=== PATIENT | male | born 1940 | race Caucasian/White ===

== ENCOUNTER → 2017-08-17 | Outpatient (CLI) | payer MEDICARE ==
--- NOTE | 2017-08-17 12:46 | REP ---
RIGHT FOOT, FOUR VIEWS: HISTORY: Contusion. There is no acute fracture or dislocation. There is narrowing of the first metatarsophalangeal joint space with associated osteophyte formation. An osteophyte is present at the base of the proximal phalange of the second digit. Osteophytes are present on the inferior and posterior calcaneus. IMPRESSION: Degenerative change as described above. Signed by Chris Mcdaniels MD 08/17/2017 12:48 P
== END ==
LOC: M WUC 10:30
PROVIDERS: ATTEND Physician Assistant
DX: S90.31XA Contusion of right foot, initial encounter (principal); W18.30XA Fall on same level, unspecified, initial encounter; Y92.009 Unspecified place in unspecified non-institutional (private) residence as the place of occurrence of the external cause

== ENCOUNTER 2017-12-02 12:05 | Day surgery (SDC) | payer MEDICARE ==
[2017-12-02] MEDS: NS 1,000 ML IV (13:13)
[2017-12-02] MEDS ORDERED: LIDOCAINE 2% INJ 100 MG/5 ML SDV (FOR ANES.) As Ordered (13:55)
[2017-12-02] MEDS ORDERED: PROPOFOL 200 MG/20 ML VIAL As Ordered ×3 (13:55→14:22)
== END 2017-12-02 14:59 | disposition home or self-care (01) ==
LOC: M OPP 12:05
DX: Z12.11 Encounter for screening for malignant neoplasm of colon (principal); K64.8 Other hemorrhoids; D12.6 Benign neoplasm of colon, unspecified; Z86.010 Personal history of colon polyps; R12 Heartburn; E11.9 Type 2 diabetes mellitus without complications; G47.30 Sleep apnea, unspecified; I10 Essential (primary) hypertension; M19.90 Unspecified osteoarthritis, unspecified site; K21.9 Gastro-esophageal reflux disease without esophagitis; R00.1 Bradycardia, unspecified; Z79.82 Long term (current) use of aspirin; Z79.84 Long term (current) use of oral hypoglycemic drugs; Z79.899 Other long term (current) drug therapy; Z88.8 Allergy status to other drugs, medicaments and biological substances; Z87.891 Personal history of nicotine dependence; Z86.79 Personal history of other diseases of the circulatory system; Z87.81 Personal history of (healed) traumatic fracture; Z86.69 Personal history of other diseases of the nervous system and sense organs; Z87.19 Personal history of other diseases of the digestive system; Z93.3 Colostomy status
CPT/HCPCS: 45385

== ENCOUNTER → 2018-02-14 | Outpatient (CLI) | payer MEDICARE | LOC: M RAD 09:30 | DX: Z12.2 Encounter for screening for malignant neoplasm of respiratory organs (principal); Z87.891 Personal history of nicotine dependence | CPT/HCPCS: G0297 ==

== ENCOUNTER 2018-04-12 19:20 | Emergency (ER) | payer MEDICARE ==
[2018-04-12] MEDS: NS 500 ML IV (20:46)
[2018-04-12 20:53] LABS: BASO % 0.3 % (0.0-1.0); EOS % 0.4 % (0.0-3.0); HEMATOCRIT 38.9 % (42.0-52.0); HEMOGLOBIN 13.3 g/dl (13.5-17.5); IMMATURE GRANULOCYTE % 0.4 % (0-3.0); LYMPH # 0.5 10^3/uL (1.5-4.5); LYMPH % 7.6 % (24.0-44.0); MEAN CORPUSCULAR HGB CONC 34.2 g/dl (32.0-36.5); MEAN CORPUSCULAR VOLUME 96.5 fl (80.0-96.0); MONO # 0.1 10^3/uL (0.0-0.8); NEUTROPHILS # 6.1 10^3/uL (1.8-7.7); NEUTROPHILS % 89.3 % (36.0-66.0); PLATELET COUNT, AUTOMATED 114 10^3/uL (150-450); RED BLOOD COUNT 4.03 10^6/uL (4.30-6.10); RED CELL DISTRIBUTION WIDTH 12.5 % (11.5-14.5); WHITE BLOOD COUNT 6.8 10^3/uL (4.0-10.0)
[2018-04-12 21:04] LABS: LACTIC ACID SEPSIS PROTOCOL 1.8 MMOL/L (0.4-2.0)
[2018-04-12 21:05] LABS: ALBUMIN 4.3 GM/DL (3.2-5.2); ALBUMIN/GLOBULIN RATIO 1.16 (1.00-1.93); ALKALINE PHOSPHATASE 67 U/L (45-117); ALT/SGPT 30 U/L (12-78); ANION GAP 8 MEQ/L (8-16); AST/SGOT 23 U/L (7-37); BILIRUBIN,DIRECT 0.2 MG/DL (0.0-0.2); BILIRUBIN,TOTAL 0.8 MG/DL (0.2-1.0); BLOOD UREA NITROGEN 28 MG/DL (7-18); CALCIUM LEVEL 9.2 MG/DL (8.8-10.2); CARBON DIOXIDE LEVEL 25 MEQ/L (21-32); CHLORIDE LEVEL 106 MEQ/L (98-107); CK-MB VALUE MASS 2.1 NG/ML (<3.6); CPK CREATINE PHOSPHOKINASE 264 U/L (39-308); GLOMERULAR FILTRATION RATE > 60.0 (>42); GLUCOSE, FASTING 150 MG/DL (70-100); INR 1.05; LIPASE 130 U/L (73-393); MB/CK RELATIVE INDEX 0.79 (< OR =4); POTASSIUM SERUM 4.6 MEQ/L (3.5-5.1); PROTHROMBIN TIME 13.8 SECONDS (12.4-14.5); SODIUM LEVEL 139 MEQ/L (136-145); TROPONIN I < 0.02 NG/ML (< 0.10)
[2018-04-12 21:06] LABS: PARTIAL THROMBOPLASTIN TIME 26.5 SECONDS (26.8-37.9)
[2018-04-12 21:07] LABS: KETONE, URINE AUTO RFX NEGATIVE (NEGATIVE); NITRITE, URINE AUTO RFX NEGATIVE (NEGATIVE); RBC, URINE AUTO RFX 6 /HPF (0-3); SPECIFIC GRAVITY UR AUTO RFX 1.017 (1.002-1.035); SQUAM EPITHELIAL CELL UR AURFX 0 /HPF (0-6)
[2018-04-12 21:08] LABS: LEUKOCYTE ESTERASE UR AUTO RFX 3+ (NEGATIVE); WBC, URINE AUTO RFX 109 /HPF (0-3)
[2018-04-12] MEDS ORDERED: ISOVUE-370 76% 100ML VIAL (Q9967) As Ordered (21:20)
[2018-04-12] MEDS: CIPROFLOXACIN 500 MG TAB PO (22:18)
== END 2018-04-12 22:20 | disposition home or self-care (01) ==
LOC: M ED 19:20
DX: N39.0 Urinary tract infection, site not specified (principal); I25.10 Atherosclerotic heart disease of native coronary artery without angina pectoris; I25.2 Old myocardial infarction; E11.9 Type 2 diabetes mellitus without complications; R56.9 Unspecified convulsions; N28.1 Cyst of kidney, acquired; K57.30 Diverticulosis of large intestine without perforation or abscess without bleeding; Z79.899 Other long term (current) drug therapy; Z88.8 Allergy status to other drugs, medicaments and biological substances
CPT/HCPCS: Q9967

== ENCOUNTER → 2018-09-16 | Outpatient (CLI) | payer MEDICARE ==
[~2018-09-16] MED LIST: ISOVUE-370 76% 100ML VIAL (Q9967) As Ordered
== END ==
LOC: M RAD 08:55
DX: J84.10 Pulmonary fibrosis, unspecified (principal)
CPT/HCPCS: Q9967

== ENCOUNTER → 2021-09-29 | Outpatient (REF) | payer MEDICARE ==
[~2021-09-29] MED LIST changes: +ASPI81TA86 PO; +CALTTAB6 PO; +CIPR-249 PO; +CRES10TA PO; +FLINCHW5 PO; +IRBE300T7 PO; -ISOVUE-370 76% 100ML VIAL (Q9967) As Ordered; +KEPP10002 PO; +NEUR300C PO; +PANT40TA29 PO; +SERT-141 PO; +VIMP150T PO; +VIMP200T PO; +VITA2000 PO; +VITA500T17 PO
== END ==
LOC: M LAB REF 15:32
PROVIDERS: ATTEND Family Medicine
DX: M70.22 Olecranon bursitis, left elbow (principal)

== ENCOUNTER 2023-07-15 07:37 | Day surgery (SDC) | payer MEDICARE ==
[~2023-07-15] VITALS: Ht 188 cm; Wt 109.0 kg
[~2023-07-15 07:37] MED LIST changes: +ASPI-161 PO; +CLOP75TA2 PO; +CYCLOPENTOLATE 1% OPHTH SOLN 2ML BTL OD SCH; +ENTR1TAB PO; +LACO200T PO; +LIDOCAINE 1% SDV 5ML VIAL As Ordered ONE; +LR 1,000 ML IV SCH; +METF10004 PO; +PHENYLEPHRINE 2.5% OPHTH SOL 2ML OD SCH; +SERT50TA29 PO; +TETRACAINE 0.5% OPHTH SOLN 4ML OD SCH; +THERTAB52 PO; +VITA100093 PO; +VITA500065 PO
[2023-07-15] MEDS ORDERED: VIMP100T PO (08:02)
[2023-07-15] MEDS ORDERED: FLURBIPROFEN 0.03% OPHTH SOLN 2.5 ML OD SCH (08:05)
[2023-07-15] MEDS ORDERED: CEFUROXIME 1MG/0.1ML INTRACAMERAL INJ As Ordered ONE (09:23)
[2023-07-15] MEDS ORDERED: MIDAZOLAM INJ 2MG/2ML VIAL As Ordered ONE (10:05)
[2023-07-15 10:49] VITALS: BP 135/82; TEMP 97.9; O2SAT 98
== END 2023-07-15 11:02 | disposition home or self-care (01) ==
LOC: M SDC 07:37
PROVIDERS: ATTEND Ophthalmology
DX: H25.11 Age-related nuclear cataract, right eye (principal); R00.1 Bradycardia, unspecified; I10 Essential (primary) hypertension; E78.5 Hyperlipidemia, unspecified; Z95.0 Presence of cardiac pacemaker; K21.9 Gastro-esophageal reflux disease without esophagitis; M19.90 Unspecified osteoarthritis, unspecified site; F32.A Depression, unspecified; R51.9 Headache, unspecified; R56.9 Unspecified convulsions; G47.30 Sleep apnea, unspecified; Z88.8 Allergy status to other drugs, medicaments and biological substances; Z79.82 Long term (current) use of aspirin; Z79.899 Other long term (current) drug therapy; Z79.84 Long term (current) use of oral hypoglycemic drugs
CPT/HCPCS: 66984; J0697; J2250; V2632

== ENCOUNTER 2024-09-23 07:44 | Day surgery (SDC) | payer MEDICARE ==
[~2024-09-23] VITALS: Ht 188 cm; Wt 107.5 kg
[~2024-09-23 07:44] MED LIST changes: -ASPI-161 PO; +ASPI-615 PO; -CYCLOPENTOLATE 1% OPHTH SOLN 2ML BTL OD SCH; +IRBE300T25 PO; -IRBE300T7 PO; +LEVE10003 PO; -LIDOCAINE 1% SDV 5ML VIAL As Ordered ONE; -LR 1,000 ML IV SCH; +NS 250 ML IV ONE; -PHENYLEPHRINE 2.5% OPHTH SOL 2ML OD SCH; +ROSU10TA61 PO; -TETRACAINE 0.5% OPHTH SOLN 4ML OD SCH; +VIMP100T PO
[2024-09-23 08:02] VITALS: TEMP 97.3
[2024-09-23] MEDS ORDERED: propofoL 200 MG/20 ML VIAL As Ordered ONE (10:14)
[2024-09-23 10:52] VITALS: BP 113/72; O2SAT 97
== END 2024-09-23 11:01 | disposition home or self-care (01) ==
LOC: M OPP 07:44
PROVIDERS: ATTEND Internal Medicine Gastroenterology
DX: Z12.11 Encounter for screening for malignant neoplasm of colon (principal); Z80.0 Family history of malignant neoplasm of digestive organs; Z86.0100 Personal history of colon polyps, unspecified; K64.0 First degree hemorrhoids; K57.30 Diverticulosis of large intestine without perforation or abscess without bleeding; E78.5 Hyperlipidemia, unspecified; E11.9 Type 2 diabetes mellitus without complications; M19.90 Unspecified osteoarthritis, unspecified site; F32.A Depression, unspecified; G47.33 Obstructive sleep apnea (adult) (pediatric); Z99.89 Dependence on other enabling machines and devices; Z87.891 Personal history of nicotine dependence; Z98.84 Bariatric surgery status; Z95.0 Presence of cardiac pacemaker; Z88.8 Allergy status to other drugs, medicaments and biological substances; Z79.82 Long term (current) use of aspirin; Z79.84 Long term (current) use of oral hypoglycemic drugs; Z79.899 Other long term (current) drug therapy

== ENCOUNTER → 2025-02-12 | Outpatient (CLI) | payer MEDICARE ==
[~2025-02-12] MED LIST changes: -NS 250 ML IV ONE
== END ==
LOC: M CARPUL 11:12
PROVIDERS: ATTEND Registered Nurse
DX: I77.810 Thoracic aortic ectasia (principal); I25.5 Ischemic cardiomyopathy